=== PATIENT | female | born 1950 | race Caucasian/White ===

== ENCOUNTER 2018-08-10 00:34 | Outpatient (CLI) | payer MEDICARE, SELFPAY ==
--- NOTE | 2018-08-10 11:44 | DI.MAMMO_ITS ---
SYMPTOM/DIAGNOSIS: SCREENING, Z12.13 MAMMOGRAMS: Mammograms were interpreted according to the usual protocol including computer analysis with CAD system, tomosynthesis and C view imaging. Comparison is made with exams from [id number] from [facility] in [place], [place]. The breasts are heterogeneously dense. No dominant mass or clumped microcalcification is identified in either breast. Current examination is compared with the previous examinations including March 2016 and there has been no gross interval change in appearance in comparison with the previous studies. CONCLUSION: No specific evidence of malignancy at this time. Routine screening examinations are suggested at yearly intervals in this age group according to the ACS/ACR guidelines. Category 1, breast density category C. SA ASSESSMENT OF FINDINGS: Negative. Category 1. Patient will receive a letter notifying them of these results. Bi-RADS category C. The breasts are heterogeneously dense, which may obscure small masses.
== END 2018-08-10 00:54 ==
PROVIDERS: PCP Nurse Practitioner Family; Visit Provider Nurse Practitioner Family
DX: Z12.31 Encounter for screening mammogram for malignant neoplasm of breast (principal)
CPT/HCPCS: 77063; 77067

== ENCOUNTER 2018-09-21 07:45 | Outpatient (CLI) | payer MEDICARE, SELFPAY ==
[2018-09-21 09:45] LABS: ALT 30 U/L (12-78); AST 22 U/L (15-37); Albumin 3.5 g/dL (3.4-5.0); Alkaline Phosphatase 134 U/L (46-116); Anion Gap 4.3 mmol/L (3-11); BUN 23 mg/dL (7-18); Bilirubin, Total 0.4 mg/dL (0.2-1.0); CO2 32.7 mmol/L (21.0-32.0); CREATININE 0.84 mg/dL (0.55-1.02); Calcium 9.5 mg/dL (8.5-10.1); Chloride 105 mmol/L (98-107); Cholesterol 200 mg/dL (50-200); Glucose 115 mg/dL (70-100); HDL Cholesterol 101 mg/dL (40-60); LDL CHOLESTEROL 89 mg/dL (<100); Sodium 142 mmol/L (136-145); Total Protein 6.7 g/dL (6.4-8.2); Triglyceride 39 mg/dL (30-150)
[2018-09-22 09:57] LABS: Hepatitis C Ab w Rflx HCV PCR Negative (NEGAT)
[2018-09-22 09:58] LABS: HIV-1/2 Ag & Ab Screen Negative (NEGAT)
== END 2018-09-21 08:05 ==
PROVIDERS: PCP Nurse Practitioner Family; Visit Provider Nurse Practitioner Family
DX: I10 Essential (primary) hypertension (principal); Z13.220 Encounter for screening for lipoid disorders; Z11.59 Encounter for screening for other viral diseases; Z11.4 Encounter for screening for human immunodeficiency virus [HIV]
CPT/HCPCS: 80053; 80061; 83721; 86803; 87389

== ENCOUNTER 2019-09-25 08:03 | Outpatient (CLI) | payer MEDICARE, SELFPAY ==
[2019-09-25 08:50] LABS: Hemoglobin A1C 5.9 % (3.8-5.6)
[2019-09-25 09:34] LABS: Anion Gap 6.2 mmol/L (3-11); BUN 17 mg/dL (7-18); CO2 30.8 mmol/L (21.0-32.0); CREATININE 0.69 mg/dL (0.55-1.02); Calcium 8.9 mg/dL (8.5-10.1); Calculated LDL 89 mg/dL (<100); Chloride 105 mmol/L (98-107); Cholesterol 190 mg/dL (<200); Glucose 101 mg/dL (74-106); HDL Cholesterol 96 mg/dL (40-60); Potassium 3.9 mmol/L (3.5-5.1); Sodium 142 mmol/L (136-145); Triglyceride 26 mg/dL (<150)
== END 2019-09-25 08:23 ==
PROVIDERS: PCP Nurse Practitioner Family; Visit Provider Nurse Practitioner Family
DX: I10 Essential (primary) hypertension (principal); E78.5 Hyperlipidemia, unspecified; R73.01 Impaired fasting glucose
CPT/HCPCS: 36415; 80048; 80061; 83036

== ENCOUNTER 2020-06-02 02:15 | Outpatient (CLI) | payer MEDICARE, SELFPAY ==
[2020-06-02 08:16] LABS: Glucose 109 mg/dL (74-106)
[2020-06-02 08:43] LABS: Hemoglobin A1C 5.8 % (<5.7)
== END 2020-06-02 02:35 ==
PROVIDERS: PCP Student in an Organized Health Care Education/Training Program; Visit Provider Nurse Practitioner Family
DX: R73.01 Impaired fasting glucose (principal)
CPT/HCPCS: 36415; 82947; 83036; 85025

== ENCOUNTER 2020-09-16 01:58 | Outpatient (CLI) | payer MEDICARE, SELFPAY ==
--- NOTE | 2020-09-16 16:08 | DI.MAMMO_ITS ---
EXAM: MG MAMMO SCREENING CLINICAL HISTORY: screening,Z12.39 TECHNIQUE: Bilateral full field digital CC and MLO mammographic images were obtained with 3D tomosyn thesis and utilizing computer aided detection (CAD). COMPARISON: Available for comparison. FINDINGS: Masses/Architectural Distortion: None seen. Microcalcifications: No suspicious pleomorphic-type are seen. Skin Thickening/Nipple Retraction: None. IMPRESSION: 1. No significant interval change with no specific features of malignancy noted. 2. Unless there is more urgent need, screening mammography is recommended, as per [employer] guidelines. BI-RADS Category 1 - Negative Breast Density - Category C - Heterogeneously dense Breast density category C or D implies that the patient has dense breast tissue. Dense breast tissue is very common and is not abnormal but dense breast tissue can make it harder to find cancer on a ma mmogram. Also, dense breast tissue may increase their breast cancer risk. This information about the result of the mammogram report was provided to the patient to raise their awareness. Use this report when you speak with the patient about their risks for breast cancer, which includes their family hist ory. At that time, you may recommend for more screening tests (Ultrasound or MRI) as they might be us eful based on their risk. A negative radiographic report should not delay biopsy if a dominant or clinically suspicious mass is present. Up to ten percent of cancers are not identified on mammography. A negative report may reinforce clinical impression. Adenosis and dense breasts may obscure an underlying neoplasm. False positive reports average 6 to 10%. Patient will receive a letter notifying them of these results.
== END 2020-09-16 02:18 ==
PROVIDERS: PCP Student in an Organized Health Care Education/Training Program; Visit Provider Student in an Organized Health Care Education/Training Program
DX: Z12.31 Encounter for screening mammogram for malignant neoplasm of breast (principal)
CPT/HCPCS: 77063; 77067

== ENCOUNTER 2020-11-21 01:53 | Outpatient (CLI) | payer MEDICARE, SELFPAY ==
[2020-11-21 08:42] LABS: HCT 42.6 % (36.0-46.0); HGB 13.8 g/dL (11.2-15.7); MCH 31.2 pg (27.0-33.0); MCHC 32.4 % (32.0-36.0); MCV 96.4 fL (80-95); Platelet Count 232 10^3/uL (130-400); RBC 4.42 10^6/uL (3.93-5.22); RDW 12.6 % (11.7-14.6); RDW-SD 45.4 fL; WBC 5.04 10^3/uL (4.4-10.8)
[2020-11-21 09:55] LABS: ALT 23 U/L (14-59); AST 14 U/L (15-37); Albumin 3.6 g/dL (3.4-5.0); Alkaline Phosphatase 110 U/L (46-116); Anion Gap 7.6 mmol/L (3-11); BUN 27 mg/dL (7-18); Bilirubin, Total 0.4 mg/dL (0.2-1.0); CO2 30.4 mmol/L (21.0-32.0); CREATININE 0.7 mg/dL (0.55-1.02); Calcium 9.1 mg/dL (8.5-10.1); Calculated LDL 82 mg/dL (<100); Chloride 105 mmol/L (98-107); Cholesterol 186 mg/dL (<200); Glucose 92 mg/dL (74-106); HDL Cholesterol 98 mg/dL (40-60); Potassium 4.1 mmol/L (3.5-5.1); Sodium 143 mmol/L (136-145); TSH (W/Ref FT4) 1.49 uIU/mL (0.36-3.74); Total Protein 6.3 g/dL (6.4-8.2); Triglyceride 31 mg/dL (<150)
[2020-11-24 05:31] LABS: Vitamin D 25 Total 44.5 ng/mL (30-100)
== END 2020-11-21 01:54 | disposition home or self-care (01) ==
PROVIDERS: PCP Student in an Organized Health Care Education/Training Program; Visit Provider Student in an Organized Health Care Education/Training Program
DX: I10 Essential (primary) hypertension (principal); E55.9 Vitamin D deficiency, unspecified; M85.80 Other specified disorders of bone density and structure, unspecified site
CPT/HCPCS: 36415; 80053; 80061; 82306; 85027; 84443

== ENCOUNTER 2020-11-21 13:47 | Outpatient (REF) | payer MEDICARE, SELFPAY ==
[2020-11-22 17:04] LABS: Campylobacter PCR Negative (Negative); Salmonella PCR Negative (Negative); Shiga Toxin PCR Negative (Negative); Shigella/Enteroinvasive Ecoli Negative (Negative)
== END 2020-11-21 13:48 | disposition home or self-care (01) ==
LOC: LBN 13:47
PROVIDERS: PCP Student in an Organized Health Care Education/Training Program; Visit Provider Student in an Organized Health Care Education/Training Program
DX: R19.7 Diarrhea, unspecified (principal); R19.8 Other specified symptoms and signs involving the digestive system and abdomen
CPT/HCPCS: 87046; 87505; 82272; 87177

== ENCOUNTER 2020-11-27 09:09 | Outpatient (REF) | payer MEDICARE, SELFPAY | END 2020-11-27 09:10 | disposition home or self-care (01) | LOC: LBN 09:09 | PROVIDERS: PCP Student in an Organized Health Care Education/Training Program; Visit Provider Student in an Organized Health Care Education/Training Program | DX: R19.7 Diarrhea, unspecified (principal); K29.70 Gastritis, unspecified, without bleeding | CPT/HCPCS: 82272 ==

== ENCOUNTER → 2020-12-18 12:53 | Outpatient (BNVA) | payer MEDICARE, SELFPAY | PROVIDERS: PCP Student in an Organized Health Care Education/Training Program; Referring Provider Student in an Organized Health Care Education/Training Program; Visit Provider Surgery | DX: R10.13 Epigastric pain (principal); R14.0 Abdominal distension (gaseous); K29.70 Gastritis, unspecified, without bleeding | CPT/HCPCS: 99202; 99203 ==

== ENCOUNTER 2020-12-31 02:29 | Outpatient (CLI) | payer MEDICARE, SELFPAY ==
[2020-12-31 12:01] LABS: Source Nasal/Nares
[2020-12-31 14:39] LABS: COVID-19 PCR Negative (Negative)
== END 2020-12-31 02:30 | disposition home or self-care (01) ==
PROVIDERS: PCP Student in an Organized Health Care Education/Training Program; Visit Provider Surgery
DX: Z20.822 Contact with and (suspected) exposure to COVID-19 (principal); Z01.818 Encounter for other preprocedural examination
CPT/HCPCS: 87635

== ENCOUNTER 2021-01-02 12:20 | Day surgery (SDC) | payer MEDICARE, SELFPAY ==
--- NOTE | 2021-01-02 | DI.CT_ITS ---
Exam(s) CT CHEST/ABD W EXAM: CT CHEST/ABD W CLINICAL HISTORY: hiatal hernia. TECHNIQUE: Imaging Protocol: Axial computed tomography images with coronal and sagittal reformatted images were created and reviewed CONTRAST MATERIAL: Intravenous: Omnipaque 350 Contrast volume:100 ml Oral: None COMPARISON: No exams were available for comparison FINDINGS: CHEST: LUNGS: There are no confluent infiltrates nor pleural effusions. There is a tiny 1-2 millimeter nodu le in the and anterior basal segment right lower lobe.. Mild benign-appearing increased markings in the posterior basal segment of the right lower lobe. MEDIASTINUM: There is no hilar nor mediastinal adenopathy. Thyroid nodules are noted. The largest ap pears to be a nodule in the mid isthmus level which measures 9 x 9 millimeters. CARDIAC: Heart is slightly enlarged. Right ventricle is slightly prominent in size. Main pulmonary arteries exhibit normal diameter.There is no pericardial effusion. Caliber of the thoracic aorta is within normal limits. OSSEOUS: Slight loss of height of superior endplate of L2 noted, nonacute in appearance. Also Schmor l's node invagination at this level.. ABDOMEN: There is no ascites. LIVER: There are no focal hepatic lesions nor dilatation of intrahepatic ducts. GALLBLADDER/BILIARY: No obvious gallbladder pathology. CBD is not dilated. PANCREAS: No evidence of pancreatic mass nor dilatation of the pancreatic duct. SPLEEN: Spleen is not enlarged. There are no intrasplenic lesions. Splenic and portal veins are morin nt. ADRENALS: There is slight nodular thickening of the genu of the left adrenal gland, possibly a small adenoma. Right adrenal gland unremarkable. KIDNEYS: No calculi nor hydronephrosis. No solid renal masses. No cysts evident. ABDOMINAL AORTA: Abdominal aorta is not enlarged. LYMPH NODES: There is no retroperitoneal nor paraaortic adenopathy. ABDOMINAL WALL: No evidence of significant anterior abdominal wall hernia. GI: There are air-filled loops of small large bowel suggesting ileus pattern. In the upper right iliac fossa there appears to be some fluid in the right pericolic gutter which is difficult to assess as this study does not include the entire pelvis. Cannot rule out inflammatory p rocess in this area versus just unopacified bowel loop. OSSEOUS: Nonacute compression fracture at superior endplate of L2. No lytic osseous lesions evident. IMPRESSION: 1. Ileus pattern. Right iliac fossa findings as described above which are indeterminate. I recommen d repeating this scan with abundant additional oral contrast to include the abdomen and pelvis. Both the abdomen and pelvis should be scanned on the repeat scan. 2. Tiny 1-2 millimeter right lower lobe nodule. No other pulmonary findings nor pleural effusions no r intrathoracic adenopathy. 3. 9 millimeter thyroid isthmus nodule. 4. RADIATION DOSE DELIVERED: 470.73mGy.cm Total DLP DATA REPOSITORY: All CT scans at this facility are submitted to the National Radiology Data Registry (NRDR) Dose Index Registry (DIR) with the [employer] (ACR). RADIATION OPTIMIZATION: All CT scans at this facility use at least one of these dose optimization te chniques: automated exposure control; mA and/or kV adjustment per patient size (includes targeted exa ms where dose is matched to clinical indication); or iterative reconstruction.
[2021-01-02 12:25] VITALS: BP 161/87; PULSE 69; RESP 18; TEMP 36.6; O2SAT 98
[2021-01-02] MEDS: Lactated Ringers 1,000 ML 80 ML IV (12:53)
--- NOTE | 2021-01-02 13:45 | ANES.PREOP_ITS ---
General Info Date of Service Date Performed: 01/02/21 Height: 5 ft 4 in Weight: 51.3 kg Body Mass Index (BMI): 19.4 Surgical Procedure: Operation Date: 01/02/21 12:05 Proposed Procedures Side Surgeon p Colonoscopy/Gastroscopy Belia Trevino, Meds Allergies and Home Medications Allergies Allergy/AdvReac Type Severity Reaction Status Date / Time oxycodone [From Percocet] AdvReac Unknown vomiting Verified 01/02/21 12:50 Home Medication Medication Instructions Recorded cholecalciferol (vitamin D3) 50 2,000 unit PO DAILY 07/07/18 mcg (2,000 unit) capsule magnesium 200 mg tablet 200 mg PO DAILY 09/29/18 hydrochlorothiazide 25 mg tablet 25 mg PO DAILY #90 tab-cap 10/03/20 atenolol 25 mg tablet 25 mg PO DAILY tab 12/16/20 bisacodyl 5 mg tablet,delayed 5 mg PO ONCE #4 tab 12/18/20 release polyethylene glycol 3350 17 238 g PO ONCE #238 g 12/18/20 gram/dose oral powder Current Visit Medications: Current Medications Generic Name Dose Route Start Last Admin Trade Name Freq PRN Reason Stop Dose Admin Ringer's Solution 1,000 mls @ 80 mls/hr 01/02/21 06:00 01/02/21 12:53 IV 01/31/21 23:59 80 mls/hr INFUSION DM Administration IV Miscellaneous Supplies 1 each 01/02/21 06:00 Iv Access IV 01/31/21 23:59 DIRECTED DM Sodium Chloride 0 ml 01/02/21 06:00 Normal Saline Flush 10 Ml Syr IV 01/31/21 23:59 PRN PRN Sodium Chloride 0 ml 01/02/21 06:00 Normal Saline 10 Ml Vial IJ 01/31/21 23:59 DIRECTED PRN Sterile Water 0 ml 01/02/21 06:00 Water,Injection,Sterile 10 Ml Vial IJ 01/31/21 23:59 DIRECTED PRN PFSH Active Problems Active Problems: Problem Status Onset Code Epigastric pain R10.13 Postprandial bloating R14.0 Gastritis K29.70 Atypical mole of neck D22.4 Hyperlipidemia, unspecified E78.5 IFG (impaired fasting glucose) R73.01 Osteopenia M85.80 Vitamin D deficiency E55.9 Postmenopausal atrophic vaginitis N95.2 Hypertension I10 Medical History Medical History Atypical mole of neck Gastritis > 1 mo Hyperlipidemia, unspecified 09/2019 labs: 10-year ASCVD risk = ~8.9% --> Hypertension IFG (impaired fasting glucose) Osteopenia Pt prefer to tx with Ca/vitamin D supplementation and exercise and does not want to pursue f/u to see if candidate for Rx Postmenopausal atrophic vaginitis Postprandial bloating Vitamin D deficiency Surgical History Surgical History H/O hernia repair S/P hysterectomy (~2001) S/P T&A (status post tonsillectomy and adenoidectomy) Tobacco Smoking/Tobacco Use Status: Former Tobacco Use Tobacco: How many years used: 3 Alcohol Alcohol Intake: current Alcohol intake frequency: a few times a week Alcohol type: beer, wine and hard liquor Substance Use Substance use type: does not use Vital Signs and Lab Results Vital Signs Most Recent Vital Signs in EMR: Most Recent Vital Signs Temp Pulse Resp BP Pulse Ox 36.6 C 69 18 161/87 H 98 01/02/21 12:25 01/02/21 12:25 01/02/21 12:25 01/02/21 12:25 01/02/21 12:25 Lab Results Blood Type / Crossmatch: No Data to Display Complete Blood Count: No Data to Display Complete Metabolic Panel: Hemoglobin A1c 5.6 % (4.5-5.7) 12/16/20 12:38 12/16/20 Liver Function Panel: No Data to Display Coagulation Panel: No Data to Display Cardiac Panel: No Data to Display Arterial Blood Gas: No Data to Display Venous Blood Gas: No Data to Display Pancreas Panel: 2 No Data to Display Thyroid Panel: No Data to Display Infectious Disease: Coronavirus (COVID-19)(PCR) Negative (Negative) 12/31/20 08:33 12/31/20 Coronavirus 2019 Source Nasal/nares 12/31/20 08:33 12/31/20 Blood Cultures: No Data to Display Toxicology Panel: No Data to Display Anesthesia Assessment and Plan Anesthesia History Personal History: PONV Family History: No Family History of Anesthesia Complications Exercise Tolerance Exercise Tolerance: Metabolic Equivalents>4 Pertinent Negatives Pertinent Negatives: No Symptoms of GERD, No Major Cardiovascular Symptoms or Complaints, No Major Pulmonary Symptoms or Complaints and No History of CVA/TIA Cardiac & Pulmonary Exam Cardiac Exam: Normal S1/S2 Heart Sounds Pulmonary Exam: Clear Bilateral Breath Sounds Airway Exam Known Difficult Airway: No Mallampati Class: 1 Mouth Opening: Normal (> 3cm) Thyromental Distance: Greater than 3 cm Neck Range of Motion: Full ROM Neck Circumference: Normal Teeth Condition: Normal Dentition Airway Comments: Bottom left implant ASA Classification ASA Score: ASA 2 Emergency Case?: No NPO Status NPO Status: NPO Clears >2 hours, Solids >8 hours Anesthesia Plan Resuscitation Status: Full Code Anesthesia Technique: General Anesthesia Airway Planned: Natural Airway Monitors Used: Standard Monitors
[2021-01-02 13:47] VITALS: BMI 19.4
--- NOTE | 2021-01-02 14:34 | PDOC.DSDIS_ITS ---
Discharge Plan Disposition Patient Disposition: HOME Condition: Good Discharge Details Reason For Visit: stomach/colon scope Attending Provider: Belia Trevino Primary Care Provider: Marti Avila Home Meds and New Rx's Prescriptions: Continued cholecalciferol (vitamin D3) 2,000 unit capsule 2,000 unit PO DAILY RF: 0 magnesium 200 mg tablet 200 mg PO DAILY RF: 0 atenolol 25 mg tablet 25 mg PO DAILY RF: 0 hydrochlorothiazide 25 mg tablet 25 mg PO DAILY Qty: 90 RF: 3 Discontinued polyethylene glycol 3350 17 gram/dose powder 238 g PO ONCE Qty: 238 RF: 0 bisacodyl [Dulcolax (bisacodyl)] 5 mg tablet,delayed release (DR/EC) 5 mg PO ONCE Qty: 4 RF: 0 Discharge Instructions Additional Instructions: DSU Colonoscopy Post- Op Instructions Instructions for Everyone who is given Anesthesia: For your safety, please do the following for the next twenty-four (24) hours: *Do Not operate a motor vehicle (car, truck, motorcycle, etc.) *Do Not drink alcoholic beverages or use any recreational drugs for the first 24 hours or while taking pain medications. The medications in your body may have a reaction that can be dangerous. *Do Not make any important decisions or sign any important papers. Findings:gastritis Possible hiatal hernia colon- normal Follow up:continue on protonix CT- to look at outside of stomach 1. No lifting over 20 pounds or strenuous activity for the first 24 hours after your procedure. After 24 hours there are no restrictions on your activity but you may feel fatigued for a few days. 2. After you arrive home you may have a light meal and return to your normal diet as you can tolerate it without feeling sick to your stomach. 3. You may have a bloated, gaseous feeling in your belly (abdomen) after a colonoscopy. Passing gas and belching will help. Walking or lying down on your left side with your knees flexed may relieve the discomfort. Call the office at [phone] (Office) or [phone] (Hospital) right away if you notice any of the following: a.Vomiting of blood or ?coffee ground stools?. b.Rectal bleeding 1Tbsp, blood clots or continuous bleeding. c.Severe belly (abdominal) pain. d.A hard distended belly (abdomen) and an inability to pass gas. 4. Please don?t expect to have a normal BM (bowel movement) for 2-3 days after your procedure. 5. If there are questions regarding the findings of your procedure, please contact your doctor 6. If you are unable to contact your doctor with a problem, contact the hospital at [phone]. 7. Continue all your regular medications unless directed otherwise. I understand the above instructions and have no questions. Signature of Patient or Adult Escort Name of Responsible Adult Escort Signature of Nurse Date/Time Activity:: see above Diet:: see above Discharge Data Discharge Date/Time-TO BE ENTERED AT DEPARTURE: 01/02/21 18:00 Discharge Comment: with DS: Diagnosis Discharge Diagnosis (1) Epigastric pain: Status: Acute (2) Postprandial bloating: Status: Acute (3) Gastritis: Status: Chronic
--- NOTE | 2021-01-02 14:40 | STOM_PTH ---
PATIENT: Mikki Frederick LOC: [facility] U#:[id number] AGE/SX: 70/F ROOM: RE01/02/[address]: Belia Trevino : 1950 BED: DIS: 01/02/2021 SPEC #: [id number] RECD: 01/02/21 17:37 STATUS: GIGI REQ #: [id number] NATHAN: 01/02/21 14:[address]: Belia Trevino DEPT: Surgical Specimen RECD BY: Henrietta Alfonso ENTERED: 01/02/21 17:38 SP TYPE: STOMACH OTHR DR: Marti Avila DO Tissues: 1 - BIOPSY BOWEL 2 - BIOPSY BOWEL 3 - STOMACH BIOPSY 4 - STOMACH BIOPSY 5 - ESOPHAGUS BIOPSY 6 - ESOPHAGUS BIOPSY Procedures: GROSS AND MICRO LEVEL 4 Comments: [id number]
--- NOTE | 2021-01-02 15:10 | W.PM.ENDDOP ---
Date of service: 01/02/21 Time of Service: 15:44 Endoscopy Report DATE OF PROCEDURE: 01/02/21 PRE-OP DIAGNOSIS: epigastric pain POST-OP DIAGNOSIS: other (gastritis ) SURGEON: Belia Trevino ANESTHESIA TYPE: General:No Airway ESTIMATED BLOOD LOSS: 1 PATHOLOGY: other COMPLICATIONS: None DISPOSITION: same day PROCEDURE DESCRIPTION: After informed consent was obtained the patient was take to the procedure room and placed in a supine position. Monitors were applied and a time out was done. The patients name, date of , procedure type, allergies to medications and metal in their body was reviewed. A bite block was placed and the patient was sedated. Once sedated and comfortable the gastroscope was advanced through the oropharynx which was grossly normal into the esophagus. The proximal and mid-esophagus were nl. In the distal esophagus there was no: esophageal erosions, diverticula, varices, barett's noted. The scope was advanced into the stomach and through the pylorus into the 3rd portion of the duodenum. The duodenum was noted to be nl. Biopsies were done, all specimen is retrieved and no bleeding is noted. The scope was retracted back into the stomach and biopsies were done to rule out H. pylori. There were no ulcers. She does have moderate gastritis at the antrum radiating out in a striped pattern. There is no signs of active or old bleeding. The scope was retroflexed. The cardia and fundus were noted to be normal. The stomach has some very sharp anuglations to it- concerning for a large hiatal hernia. Ct of the chest will be obtained today. The scope was retracted back into the esophagus and biopsies were done of the GE junction to rule out Boggs's. The Z line was regular. The scope was removed and the patient was woken up and taken back to [facility] in stable condition. Follow up: will call w/ results.
--- NOTE | 2021-01-02 15:13 | PDOC.DSDIS_ITS ---
Discharge Plan Disposition Patient Disposition: HOME Condition: Good Discharge Details Reason For Visit: stomach/colon scope Attending Provider: Belia Trevino Primary Care Provider: Marti Avila Home Meds and New Rx's Prescriptions: Continued cholecalciferol (vitamin D3) 2,000 unit capsule 2,000 unit PO DAILY RF: 0 magnesium 200 mg tablet 200 mg PO DAILY RF: 0 atenolol 25 mg tablet 25 mg PO DAILY RF: 0 hydrochlorothiazide 25 mg tablet 25 mg PO DAILY Qty: 90 RF: 3 Discontinued polyethylene glycol 3350 17 gram/dose powder 238 g PO ONCE Qty: 238 RF: 0 bisacodyl [Dulcolax (bisacodyl)] 5 mg tablet,delayed release (DR/EC) 5 mg PO ONCE Qty: 4 RF: 0 Discharge Instructions Additional Instructions: DSU Colonoscopy Post- Op Instructions Instructions for Everyone who is given Anesthesia: For your safety, please do the following for the next twenty-four (24) hours: *Do Not operate a motor vehicle (car, truck, motorcycle, etc.) *Do Not drink alcoholic beverages or use any recreational drugs for the first 24 hours or while taking pain medications. The medications in your body may have a reaction that can be dangerous. *Do Not make any important decisions or sign any important papers. Findings:gastritis Possible hiatal hernia colon- normal Follow up:continue on protonix CT- to look at outside of stomach 1. No lifting over 20 pounds or strenuous activity for the first 24 hours after your procedure. After 24 hours there are no restrictions on your activity but you may feel fatigued for a few days. 2. After you arrive home you may have a light meal and return to your normal diet as you can tolerate it without feeling sick to your stomach. 3. You may have a bloated, gaseous feeling in your belly (abdomen) after a colonoscopy. Passing gas and belching will help. Walking or lying down on your left side with your knees flexed may relieve the discomfort. Call the office at [phone] (Office) or [phone] (Hospital) right away if you notice any of the following: a.Vomiting of blood or ?coffee ground stools?. b.Rectal bleeding 1Tbsp, blood clots or continuous bleeding. c.Severe belly (abdominal) pain. d.A hard distended belly (abdomen) and an inability to pass gas. 4. Please don?t expect to have a normal BM (bowel movement) for 2-3 days after your procedure. 5. If there are questions regarding the findings of your procedure, please contact your doctor 6. If you are unable to contact your doctor with a problem, contact the hospital at [phone]. 7. Continue all your regular medications unless directed otherwise. I understand the above instructions and have no questions. Signature of Patient or Adult Escort Name of Responsible Adult Escort Signature of Nurse Date/Time Activity:: see above Diet:: see above Discharge Data Discharge Date/Time-TO BE ENTERED AT DEPARTURE: 01/02/21 18:00 Discharge Comment: with DS: Diagnosis Discharge Diagnosis (1) Epigastric pain: Status: Acute (2) Postprandial bloating: Status: Acute (3) Gastritis: Status: Chronic
[2021-01-02 15:21] VITALS: BP 118/66; PULSE 63; RESP 16; TEMP 36.3; O2SAT 98
--- NOTE | 2021-01-02 15:24 | W.ANESPOSTOP ---
Postoperative Evaluation Date, Time and Location Date Performed: 01/02/21 Time Performed: 15:25 Patient Location: Day Surgery Unit Vital Signs Most Recent Imported Vital Signs: Most Recent Vital Signs Temp Pulse Resp BP Pulse Ox 36.6 C 69 18 161/87 H 98 01/02/21 12:25 01/02/21 12:25 01/02/21 12:25 01/02/21 12:25 01/02/21 12:25 Most Recent Manually Entered Vital Signs: Adult Blood Pressure: 118/66 Heart Rate: 59 Respirations: 12 Oxygen Saturation (%): 99 Temperature (C): 36.4 C Pain Score (0-10 Scale): 0 Pain Score Most Recent Pain Score: Most Recent Pain Score Pain Level 0 01/02/21 12:25 Assessment Mental Status: Awake (Alert & Oriented to Patient Baseline) Airway and Respiratory Function: Patent airway with normal (patient baseline) respiratory exam Cardiovascular Function: Hemodynamically Stable Hydration Status: Adequately Hydrated Nausea & Vomiting: No Nausea or Vomiting Pain: Pt. Denies Any Pain Peripheral Nerve Block: Patient did not receive a nerve block
[2021-01-02 15:25] VITALS: BP 118/66; PULSE 59; RESP 12; TEMPC 36.4; O2SAT 99
--- NOTE | 2021-01-02 15:28 | COLE_ITS ---
Date of service: 01/02/21 Time of Service: 15:28 Colonoscopy Report Date of procedure: 01/02/21 Pre-op diagnosis general: epigastric pain & CRC screen Post-op diagnosis procedure note: other (normal ) Surgeon: Belia Trevino Anesthesia Type: General LMA/ETT Pathology: none sent Complications: None Disposition: same day Prep: Miralax/Dulcolax Retraction Time: 8 mins Procedure Description: After informed consent was obtained the patient was taken to the procedure room and placed in a left decubitous position. Monitors were applied and a time out was done. The patients name, date of , procedure, allergies to medications and metal in their body was reviewed. The patient was then sedated. Once sedated and comfortable a rectal exam was done. External exam was normal. Internal exam revealed a normal sphincter tone and no palpable mass es. The scope was then introduced and retrofelexed. No internal hemorrhoids were identified. Her colon is extremely tortuous. Once I get to the hepatic flexure, I'm not able to manipulate the scope through the hepatic flexure, also her heart rate starts to fall/she starts to vasovagal from the stretch. The procedure was then abandoned for patient safety. There are no AVMs, polyps, diverticula apparent today. Mucosa is pink and normal. The remainder of the the colon is normal. The prep was good. The scope was then slowly retracted over 8 minutes back into the rectum. The scope was removed and the patient was woken up and taken back to Same day surgery in stable condition. The patient tolerated the procedure well and there were no immediate complications. Follow up: The patient should F/u in office in 3 wks. She does not require any further Colonoscopies, unless they develop changes in bowel habits or other new gastrointestinal complaints.
[2021-01-02] MEDS: Omnipaque 350 MG/ML 100 ML BTL IJ (16:58)
[2021-01-02] MEDS: Normal Saline - Diluent 50 ML VIAL IV (16:58)
[2021-01-02] MEDS: Omnipaque 350 MG/ML 50 ML BTL PO (16:59)
[2021-01-02] MEDS: Normal Saline Flush 10 ML SYR IV (16:59)
[2021-01-02] MEDS: Breeza Beverage 473 ML BTL PO (16:59)
[2021-01-02 17:00] VITALS: BP 141/79; PULSE 77; RESP 16; TEMP 36.4; O2SAT 98
--- NOTE | 2021-01-02 17:24 | DI.VRAD_ITS ---
PROCEDURE INFORMATION: Exam: CT Chest With Contrast; Diagnostic Exam date and time: 01/02/2021 3:26 PM Age: 70 years old Clinical indication: Other: Hiatal hernia TECHNIQUE: Imaging protocol: Diagnostic computed tomography of the chest with contrast. 3D rendering (Not supervised by radiologist): MIP and/or 3D reconstructed images were created by the technologist. Radiation optimization: All CT scans at this facility use at least one of these dose optimization techniques: automated exposure control; mA and/or kV adjustment per patient size (includes targeted exams where dose is matched to clinical indication); or iterative reconstruction. Contrast material: OMNIPAQUE 350; Contrast volume: 100 ml; Contrast route: INTRAVENOUS (IV); Other contrast: Oral, OMNIPAQUE 350; COMPARISON: No relevant prior studies available. FINDINGS: Lungs: There are scattered regions of mild pleuroparenchymal scarring and atelectasis within the lungs. There is a 2 mm lateral right lower lobe nodule on image 370, series 6. Pleural spaces: There are no pleural effusions present. Heart: Heart size is normal. There is no pericardial effusion. Mediastinal space: There is no hiatal hernia present. The esophagus is not dilated and appears unremarkable. Aorta: Unremarkable. No aortic aneurysm. Lymph nodes: There is no evidence of lymphadenopathy. Bones/joints: There are multilevel mild degenerative changes of the thoracic spine. No acute fracture. Soft tissues: Unremarkable. IMPRESSION: 1. No hiatal hernia. 2. The esophagus is nondilated and appears unremarkable. 3. 2 mm right lower lobe nodule, indeterminate. For patients at low risk (minimal or absent history of smoking and of other known risk factors), no routine follow-up is indicated. For patients at high risk (history of smoking or of other known risk factors), consider optional CT Chest at 12 months. (Reference: Balaji) REFERENCES: Balaji H, et al. Guidelines for Management of Incidental Pulmonary Nodules Detected on CT Images: From the Fleischner Society 2017. Radiology. 2017;284(1):228-243. PROCEDURE INFORMATION: Exam: CT Abdomen With Contrast Exam date and time: 01/02/2021 3:26 PM Age: 70 years old Clinical indication: Other: Hiatal hernia TECHNIQUE: Imaging protocol: Computed tomography images of the abdomen with intravenous contrast. 3D rendering (Not supervised by radiologist): MIP and/or 3D reconstructed images were created by the technologist. Radiation optimization: All CT scans at this facility use at least one of these dose optimization techniques: automated exposure control; mA and/or kV adjustment per patient size (includes targeted exams where dose is matched to clinical indication); or iterative reconstruction. Contrast material: OMNIPAQUE 350; Contrast volume: 100 ml; Contrast route: INTRAVENOUS (IV); Other contrast: Oral, OMNIPAQUE 350; COMPARISON: No relevant prior studies available. FINDINGS: Liver: Normal. No mass. Gallbladder and bile ducts: Normal. No calcified stones. No ductal dilation. Pancreas: The pancreas is moderately atrophic but appears otherwise unremarkable without focal lesion or evidence of acute inflammation. Spleen: Normal. No splenomegaly. Adrenals: There is diffuse bilateral nonspecific mild adrenal enlargement, suggesting hyperplasia. Kidneys and ureters: Normal. No hydronephrosis. Stomach and bowel: There are numerous borderline dilated air-filled loops of small bowel throughout the abdomen. The transverse colon is also air-filled and appears prominent, measuring up to 4.8 cm diameter. Findings are suggestive of ileus. There is no evidence for bowel inflammation. Intraperitoneal space: Unremarkable. No free air. No significant fluid collection. Lymph nodes: Unremarkable. No enlarged lymph nodes. Vasculature: Unremarkable. No abdominal aortic aneurysm. Bones/joints: There is chronic appearing mild anterior wedge compression deformity of the L2 vertebra. No acute fractures are identified. There is multilevel mild spondylosis of the thoracic and lumbar spine. Soft tissues: Unremarkable. IMPRESSION: 1. No hiatal hernia identified. 2. Numerous prominent air-filled loops of small and large bowel as described above, suggesting ileus. Recommend clinical correlation. Dictated and Authenticated by: David Hoyos MD. Ordering:NEVILLE Celaya MD
== END 2021-01-02 18:00 | disposition home or self-care (01) ==
PROVIDERS: PCP Student in an Organized Health Care Education/Training Program; Visit Provider Surgery
PROC: (CPT 43239; principal; 2021-01-02 12:00)
DX: R10.13 Epigastric pain (principal); K29.70 Gastritis, unspecified, without bleeding; Z12.11 Encounter for screening for malignant neoplasm of colon
CPT/HCPCS: 43239; G0121; 88305; 71260; 74160; J2001; J3490; Q9967

== ENCOUNTER 2022-01-05 00:44 | Outpatient (CLI) | payer MEDICARE, SELFPAY ==
[2022-01-05 10:18] LABS: Calculated LDL 93 mg/dL (<100); Cholesterol 208 mg/dL (<200); HDL Cholesterol 108 mg/dL (40-60); Triglyceride 39 mg/dL (<150)
== END 2022-01-05 00:45 | disposition home or self-care (01) ==
LOC: LBO 00:44
PROVIDERS: PCP Student in an Organized Health Care Education/Training Program; Visit Provider Student in an Organized Health Care Education/Training Program
DX: I10 Essential (primary) hypertension (principal)
CPT/HCPCS: 36415; 80061

== ENCOUNTER 2022-08-30 00:27 | Outpatient (CLI) | payer MEDICARE, SELFPAY ==
--- NOTE | 2022-08-30 06:45 | DI.MAMMO_ITS ---
Exam(s) MAMMO SCREENING EXAM: MAMMO SCREENING CLINICAL HISTORY: screening,z12.39 TECHNIQUE: Mammograms were interpreted according to the usual protocol including computer analysis w [email or web address] CAD system, tomosynthesis and C-view imaging. COMPARISON: 2012 through 2020 FINDINGS: The breasts are composed of heterogeneously dense fibroglandular densities, Breast Density category C . No suspicious masses or suspicious microcalcifications are seen. No skin thickening or abnormal axillary lymph nodes are seen. There has been no significant change from prior exams. IMPRESSION: BI-RADS Category 1, Negative mammogram. Yearly screening mammography is recommended. Breast Density Category C, heterogeneously Dense. The mammogram demonstrates the patient's breast tissue is dense. Dense breast tissue is very common a nd is not abnormal but dense breast tissue can make it harder to find cancer on a mammogram. Also, de nse breast tissue may increase breast cancer risk. This information about the result of the mammogram report was provided to the patient to raise their awareness. Use this report when you speak with the patient about their risks for breast cancer, which includes their family history. At that time, you may recommend additional screening tests (Ultrasound or MRI) as they might be useful based on their r isk. A negative radiographic report should not delay biopsy if a dominant or clinically suspicious mass is present. Up to ten percent of cancers are not identified on mammography. A negative report may reinforce clinical impression. Adenosis and dense breasts may obscure an underlying neoplasm. False positive reports average 6 to 10%.
== END 2022-08-30 00:47 ==
LOC: DI 00:27
PROVIDERS: PCP Student in an Organized Health Care Education/Training Program; Visit Provider Student in an Organized Health Care Education/Training Program
DX: Z12.31 Encounter for screening mammogram for malignant neoplasm of breast (principal); R92.8 Other abnormal and inconclusive findings on diagnostic imaging of breast
CPT/HCPCS: 77063; 77067

== ENCOUNTER 2022-11-24 02:20 | Outpatient (CLI) | payer MEDICARE, SELFPAY ==
[2022-11-24 09:00] LABS: HGB 13.8 g/dL (11.2-15.7); MCH 31.2 pg (27.0-33.0); MCHC 32.9 % (32.0-36.0); MCV 95 fL (80-95); MPV 10.6 fL (8.0-11.0); Platelet Count 232 10^3/uL (130-400); RBC 4.42 10^6/uL (3.93-5.22); RDW-SD 46.1 fL; WBC 6.19 10^3/uL (4.4-10.8)
[2022-11-24 09:09] LABS: Hemoglobin A1C 5.9 % (<5.7)
[2022-11-24 09:24] LABS: ALT 34 U/L (14-59); AST 20 U/L (15-37); Albumin 3.6 g/dL (3.4-5.0); Alkaline Phosphatase 135 U/L (46-116); BUN 25 mg/dL (7-18); Bilirubin, Total 0.4 mg/dL (0.2-1.0); CREATININE 0.9 mg/dL (0.55-1.02); Calcium 8.8 mg/dL (8.5-10.1); Chloride 104 mmol/L (98-107); Cholesterol 195 mg/dL (<200); Estimated GFR 68.77 (mL/min/1.73m2); Glucose 110 mg/dL (74-106); HDL Cholesterol 108 mg/dL (40-60); Potassium 3.8 mmol/L (3.5-5.1); Sodium 142 mmol/L (136-145); Total Protein 6.9 g/dL (6.4-8.2)
[2022-11-24 09:26] LABS: Triglyceride < 25 mg/dL (<150)
[2022-11-24 09:46] LABS: LDL CHOLESTEROL 73 mg/dL (<100)
== END 2022-11-24 02:21 | disposition home or self-care (01) ==
LOC: LBO 02:20
PROVIDERS: PCP Student in an Organized Health Care Education/Training Program; Visit Provider Student in an Organized Health Care Education/Training Program
DX: I10 Essential (primary) hypertension (principal); E63.9 Nutritional deficiency, unspecified; Z91.89 Other specified personal risk factors, not elsewhere classified; R73.01 Impaired fasting glucose; E55.9 Vitamin D deficiency, unspecified
CPT/HCPCS: 36415; 80053; 80061; 82306; 83721; 85027; 83036

== ENCOUNTER → 2024-01-03 03:12 | Outpatient (CLI) | payer MEDICARE, SELFPAY ==
--- NOTE | 2024-01-03 08:00 | DI.MAMMO_ITS ---
Exam(s) MAMMO SCREENING EXAM: MAMMO SCREENING CLINICAL HISTORY: screening,z12.39. TECHNIQUE: Bilateral full field digital CC and MLO mammographic images were obtained with 3D tomosyn thesis and utilizing computer aided detection (CAD). COMPARISON: Prior mammograms were reviewed. FINDINGS: There has been no significant change in the appearance and distribution of the fibroglandular tissue. There are no new spiculated masses nor malignant appearing microcalcification groups. There is no significant architectural distortion nor skin thickening-retraction. IMPRESSION: No radiographic evidence of malignancy. BI-RADS Category 1 - Negative Breast Density - Category C - Heterogeneously dense Breast density Category C or D implies that the patient has dense breast tissue. Dense breast tissue can make it harder to find cancer on a mammogram. Dense breast tissue is also associated with an incr eased risk of breast cancer. This information about the result of the mammogram report was provided to the patient to raise their awareness. Use this report when you speak with the patient about their risks for breast cancer, which includes their family history. At that time, you may recommend additional screening tests (Ultrasoun d or MRI) as these tests may add significant information. A negative radiographic report should not delay biopsy if a dominant or clinically suspicious mass is present. Up to ten percent of cancers are not identified on mammography. A negative report may reinforce clinical impression. Adenosis and dense breasts may obscure an underlying neoplasm. False positive reports average 6 to 10%. Patient will receive a letter notifying them of these results.
== END ==
PROVIDERS: PCP Student in an Organized Health Care Education/Training Program; Visit Provider Student in an Organized Health Care Education/Training Program
DX: Z12.31 Encounter for screening mammogram for malignant neoplasm of breast (principal); R92.333 Mammographic heterogeneous density, bilateral breasts
CPT/HCPCS: 77063; 77067

== ENCOUNTER 2024-05-23 03:36 | Outpatient (CLI) | payer MEDICARE, SELFPAY ==
[2024-05-23 08:04] LABS: HCT 40.7 % (36.0-46.0); HGB 13.2 g/dL (11.2-15.7); MCH 31.1 pg (27.0-33.0); MCHC 32.4 % (32.0-36.0); MCV 96 fL (80-95); Platelet Count 244 10^3/uL (130-400); RBC 4.25 10^6/uL (3.93-5.22); RDW 12.7 % (11.7-14.6); WBC 5.22 10^3/uL (4.4-10.8)
[2024-05-23 09:51] LABS: Folate 17.5 ng/mL (8.6-20.0)
[2024-05-23 09:54] LABS: ALT 23 U/L (14-59); AST 20 U/L (15-37); Albumin 3.4 g/dL (3.4-5.0); Alkaline Phosphatase 126 U/L (46-116); Anion Gap 8.2 mmol/L (3-11); BUN 23 mg/dL (7-18); Bilirubin, Total 0.43 mg/dL (0.2-1.0); CO2 28.8 mmol/L (21.0-32.0); CREATININE 0.8 mg/dL (0.55-1.02); Calcium 9.4 mg/dL (8.5-10.1); Calculated LDL 85 mg/dL (<100); Chloride 104 mmol/L (98-107); Cholesterol 204 mg/dL (<200); Estimated GFR 78.24 (mL/min/1.73m2); Glucose 98 mg/dL (74-106); HDL Cholesterol 113 mg/dL (40-60); Potassium 3.7 mmol/L (3.5-5.1); Sodium 141 mmol/L (136-145); TSH (W/Ref FT4) 1.54 uIU/mL (0.36-3.74); Triglyceride 31 mg/dL (<150); Vitamin B12 429 pg/mL (193-986); Vitamin D 25 Total 32.3 ng/mL (30-100)
[2024-05-24 12:00] LABS: Measles IgG Antibody Positive (See Note)
== END 2024-05-23 03:37 | disposition home or self-care (01) ==
PROVIDERS: PCP Student in an Organized Health Care Education/Training Program; Visit Provider Student in an Organized Health Care Education/Training Program
DX: I10 Essential (primary) hypertension (principal); Z13.220 Encounter for screening for lipoid disorders; I95.1 Orthostatic hypotension; E63.9 Nutritional deficiency, unspecified; K90.9 Intestinal malabsorption, unspecified; K29.60 Other gastritis without bleeding; M85.80 Other specified disorders of bone density and structure, unspecified site; E55.9 Vitamin D deficiency, unspecified; R53.83 Other fatigue; Z28.9 Immunization not carried out for unspecified reason; K29.70 Gastritis, unspecified, without bleeding; Z13.0 Encounter for screening for diseases of the blood and blood-forming organs and certain disorders involving the immune mechanism
CPT/HCPCS: 36415; 80053; 80061; 82306; 85027; 82607; 82746; 84443; 86765

== ENCOUNTER 2025-06-11 01:46 | Outpatient (CLI) | payer MEDICARE, SELFPAY ==
[2025-06-11 08:38] LABS: Vitamin D 25 Total 44 ng/mL (30-100)
[2025-06-11 08:42] LABS: ALT 21 U/L (10-49); AST 22 U/L (<34); Albumin 3.8 g/dL (3.4-5.0); Alkaline Phosphatase 118 U/L (46-116); Anion Gap 4.1 mmol/L (3-11); BUN 26 mg/dL (9-23); Bilirubin, Total 0.60 mg/dL (0.2-1.2); CO2 28.9 mmol/L (20.0-31.0); Calcium 9.0 mg/dL (8.3-10.6); Chloride 107 mmol/L (98-107); Cholesterol 184 mg/dL (<200); Glucose 98 mg/dL (74-106); HDL Cholesterol 93 mg/dL (>40); Potassium 3.9 mmol/L (3.5-5.1); Sodium 140 mmol/L (136-145); Total Protein 5.8 g/dL (5.7-8.2)
== END 2025-06-11 01:47 | disposition home or self-care (01) ==
LOC: LBO 01:46
PROVIDERS: PCP Nurse Practitioner Family; Referring Provider Nurse Practitioner Family; Visit Provider Nurse Practitioner Family
DX: M85.80 Other specified disorders of bone density and structure, unspecified site (principal); I10 Essential (primary) hypertension; E78.5 Hyperlipidemia, unspecified
CPT/HCPCS: 36415; 80053; 80061; 82306